=== PATIENT | male | born 1960 | race Caucasian/White ===

== ENCOUNTER 2016-07-27 08:56 | Day surgery (SDC) | payer OTHER ==
[2016-07-26 13:29] VITALS: BMI 39.1
[2016-07-27] MEDS ORDERED: PROPOFOL 20 ML ONE ×3 (09:19)
[2016-07-27 10:17] VITALS: TEMP 98.2
[2016-07-27 11:22] VITALS: BP 133/80; PULSE 68
--- NOTE | 2016-07-28 14:05 | PATH ---
Surgical Pathology Report Patient Name: JOHANNA KEANE [facility]. Rec. #: [id number] /Age/Gender: 1960 (Age: 56) / M Account: [id number] Location: U-ENDOSCOPY Taken: 07/27/2016 Received: 07/27/2016 Reported: 07/28/2016 Physicians: Marcus Zimmerman D.O. Specimen(s) Received A: DESCENDING COLON POLYPS B: BX CECAL POLYPS C: BX HEPATIC FLEXURE POLYP D: BX PROXIMAL TRANSVERSE COLON POLYP E: SIGMOID POLYPS Clinical History History of colon polyp Polyps, hemorrhoids Final Diagnosis A. COLON, DESCENDING, POLYPS, POLYPECTOMY: MULTIPLE FRAGMENTS OF TUBULAR ADENOMA. B. COLON, CECUM, POLYPS, BIOPSY: FRAGMENTS OF TUBULAR ADENOMA. C. COLON, HEPATIC FLEXURE, POLYP, POLYPECTOMY: TUBULAR ADENOMA. D. COLON, PROXIMAL TRANSVERSE, POLYP, BIOPSY: FRAGMENTS OF TUBULAR ADENOMA. E. COLON SIGMOID, POLYPS, POLYPECTOMY: INFLAMED HYPERPLASTIC POLYPS WITH FOCAL FEATURES OF MUCOSAL PROLAPSE. Electronically Signed Devendra Botello M.D. Gross Description A. Received in formalin, labeled "descending colon polyps" are 4 jacobson, irregular portions of soft tissue ranging from 0.1-0.4 cm in greatest dimension. The specimens are submitted in toto in one cassette. B. Received in formalin, labeled "biopsy cecal polyps" are 4 jacobson, irregular portions of soft tissue ranging from 0.1-0.3 cm in greatest dimension. The specimens are submitted in toto in one cassette. C. Received in formalin, labeled "hepatic flexure polyp" are 3 jacobson, irregular portions of soft tissue averaging 0.1 cm in greatest dimension. The specimens are submitted in toto in one cassette. D. Received in formalin, labeled "biopsy proximal transverse colon" are 2 jacobson, irregular portions of soft tissue averaging 0.3 cm in greatest dimension. The specimens are submitted in toto in one cassette. E. Received in formalin, labeled "sigmoid polyps" are 2 jacobson, irregular portions of soft tissue measuring 0.1 and 0.3 cm in greatest dimension. The specimens are submitted in toto in one cassette. 07/27/201607/27/2016
== END 2016-07-27 11:21 | disposition home or self-care (01) ==
LOC: JASU-ENDO 08:56
PROVIDERS: ATTEND Internal Medicine Gastroenterology
PROC: 0DBH8ZX Excision of Cecum, Via Natural or Artificial Opening Endoscopic, Diagnostic (ICD-10-PCS; 2016-07-27)
PROC: 0DBM8ZX Excision of Descending Colon, Via Natural or Artificial Opening Endoscopic, Diagnostic (ICD-10-PCS; 2016-07-27)
PROC: 0DBL8ZX Excision of Transverse Colon, Via Natural or Artificial Opening Endoscopic, Diagnostic (ICD-10-PCS; 2016-07-27)
PROC: 0DBN8ZX Excision of Sigmoid Colon, Via Natural or Artificial Opening Endoscopic, Diagnostic (ICD-10-PCS; principal; 2016-07-27 09:30)
DX: Z12.11 Encounter for screening for malignant neoplasm of colon (principal); D12.5 Benign neoplasm of sigmoid colon; D12.4 Benign neoplasm of descending colon; D12.0 Benign neoplasm of cecum; D12.3 Benign neoplasm of transverse colon; K63.5 Polyp of colon; K64.4 Residual hemorrhoidal skin tags
CPT/HCPCS: 88305-TC

== ENCOUNTER 2021-09-22 04:39 | Day surgery (SDC) | payer OTHER ==
[2021-09-17 16:34] VITALS: BMI 36.9
[2021-09-22] MEDS ORDERED: KETAMINE HCL 200 MG/20 ML VIAL ONE (07:46)
[2021-09-22 08:48] VITALS: TEMP 98
[2021-09-22 09:45] VITALS: BP 109/66; PULSE 75
== END 2021-09-22 09:35 | disposition home or self-care (01) ==
LOC: JASU-ENDO 04:39
PROVIDERS: ATTEND Internal Medicine Gastroenterology
PROC: 0DBL8ZX Excision of Transverse Colon, Via Natural or Artificial Opening Endoscopic, Diagnostic (ICD-10-PCS; 2021-09-22)
PROC: 0DBP8ZX Excision of Rectum, Via Natural or Artificial Opening Endoscopic, Diagnostic (ICD-10-PCS; 2021-09-22)
PROC: 0DBH8ZX Excision of Cecum, Via Natural or Artificial Opening Endoscopic, Diagnostic (ICD-10-PCS; principal; 2021-09-22 08:00)
DX: Z12.11 Encounter for screening for malignant neoplasm of colon (principal); Z86.010 Personal history of colon polyps; K57.30 Diverticulosis of large intestine without perforation or abscess without bleeding; D12.0 Benign neoplasm of cecum; D12.3 Benign neoplasm of transverse colon; K64.8 Other hemorrhoids; A63.0 Anogenital (venereal) warts
CPT/HCPCS: 88305-TC

== ENCOUNTER 2024-10-16 06:31 | Day surgery (SDC) | payer OTHER ==
[2024-10-15 12:20] VITALS: BMI 35.4
[2024-10-16 08:38] VITALS: TEMP 98.2
[2024-10-16 09:21] VITALS: RESP 16
[2024-10-16 09:24] VITALS: BP 123/85; PULSE 61
== END 2024-10-16 09:34 | disposition home or self-care (01) ==
LOC: JASU-ENDO 06:31
PROVIDERS: ATTEND Internal Medicine Gastroenterology
PROC: 0DBL8ZX Excision of Transverse Colon, Via Natural or Artificial Opening Endoscopic, Diagnostic (ICD-10-PCS; 2024-10-16)
PROC: 0DBH8ZX Excision of Cecum, Via Natural or Artificial Opening Endoscopic, Diagnostic (ICD-10-PCS; principal; 2024-10-16 08:00)
DX: Z12.11 Encounter for screening for malignant neoplasm of colon (principal); D12.0 Benign neoplasm of cecum; D12.3 Benign neoplasm of transverse colon; K57.30 Diverticulosis of large intestine without perforation or abscess without bleeding; K64.8 Other hemorrhoids; Z86.0100 Personal history of colon polyps, unspecified
CPT/HCPCS: 88305-TC